=== PATIENT | male | born 1960 | race Caucasian/White ===

== ENCOUNTER 2017-01-31 03:06 | Inpatient (IN) | payer OTHER, SELFPAY ==
[2017-01-31] MEDS ORDERED: Piperacillin/Tazobactam 3.375 GM in Sodium Chloride 0.9% 100 ML IVPB SCH (03:45)
[2017-01-31] MEDS ORDERED: Acetaminophen 500 MG TAB ONE (03:51)
[2017-01-31] MEDS ORDERED: Ketorolac Tromethamine 30 MG/ML VIAL ONE ×2 (03:51→09:06)
[2017-01-31 04:09] LABS: #Eosinphils 0.1 thou/uL (0.0-0.7); #Lymphocytes 0.5 thou/uL (1.20-3.40); #Monocytes 0.9 thou/uL (0.11-0.59); #Neutrophils 7.5 thou/uL (1.40-6.50); %Basophils 0.3 % (0.0-1.0); %Eosinophils 1.1 % (0.0-10.0); %Lymphocytes 5.9 % (21.0-51.0); %Monocytes 9.8 % (0.0-10.0); Hematocrit 42.5 % (42.0-52.0); Red Blood Cell (RBC) Count 4.75 mill/uL (4.70-6.10); White Blood Cell (WBC) Count 9.1 thou/uL (4.8-10.8)
[2017-01-31 04:21] LABS: Lactic Acid - Sepsis 1.2 mmol/L (0.5-2.2)
[2017-01-31 04:25] LABS: ALT (SGPT) 54 U/L (8-55); AST (SGOT) 68 U/L (5-34); Alkaline Phosphatase 129 U/L (40-150); Anion Gap 12 mmol/L (10-20); BUN (Urea Nitrogen) 12 mg/dL (8.4-25.7); Bilirubin, Total 1.7 mg/dL (0.2-1.2); CK (CPK) 138 U/L (30-200); Calc. Creatinine Clearance 0 mL/min (70-130); Calcium 8.9 mg/dL (7.8-10.44); Carbon Dioxide 23 mmol/L (22-29); Chloride 103 mmol/L (98-107); Estimated GFR-MDRD 90; Lipase 34 U/L (8-78); Protein, Total 8.4 g/dL (6.0-8.3)
[2017-01-31 04:29] LABS: Troponin I Less than 0.010 ng/mL (< 0.028)
[2017-01-31 05:31] LABS: Bilirubin Negative (Negative); Blood, Urine Negative (Negative); Glucose, Urine (Dipstick) Negative (Negative); Ketone, Urine Negative (Negative); Nitrite Negative (Negative); Protein, Urine (Dipstick) Negative (Neg-Trace)
--- NOTE | 2017-01-31 07:46 | RAD ---
RIGHT ANKLE 3 VIEWS: Date: 01/31/17 HISTORY: 56-year-old male with fever. FINDINGS: Very severe deformity of the distal tibia, fibula, and ankle mortise with some longstanding chronic d estructive changes of the tibiotalar joint. There is some fusion of the distal tibiofibular joint. Th ere is some soft tissue fullness both medially, laterally, and anteriorly. No evidence for acute frac ture. IMPRESSION: Very severe destructive arthropathy changes involving the tibiotalar joint with fusion of the distal tibiofibular joint. No acute fracture or dislocation. Findings are certainly consistent with that of extensive old trauma and/or old prior surgery. Given history of fever, the possibility of chronic sep tic arthritis and even osteomyelitis cannot be excluded from this plain film. If that is a clinical c oncern, follow-up MRI study might be of benefit. POS: SCOUT
[2017-01-31] MEDS ORDERED: HYDROcodone/Acetaminophen 5/325 mg Tablet PO PRN (10:20)
[2017-01-31] MEDS ORDERED: Ondansetron ODT 4 MG TAB PO PRN (10:20)
[2017-01-31] MEDS ORDERED: Acetaminophen 325 MG TAB PO PRN (10:20)
[2017-01-31] MEDS: Sodium Chloride 0.9% 1,000 ML IV SCH ×2 (12:45→21:14)
[2017-01-31 12:55] VITALS: BMI 35.5
[2017-01-31] MEDS: Cefepime 2 GM, Syringe 2.5 ML in Sterile Water 10 ML SLOW IVP SCH ×2 (13:55→23:32)
[2017-01-31] MEDS: Vancomycin HCl 1.25 GM, Admixture Fee 1 EACH in Sodium Chloride 0.9% 250 ML 250 ML IVPB SCH (15:34)
[2017-01-31] MEDS: HYDROcodone/Acetaminophen 10/325 mg Tablet PO PRN (17:22)
[2017-01-31] MEDS ORDERED: Cefepime 2 GM in Sodium Chloride 0.9% 100 ML IVPB SCH (21:00)
[2017-01-31] MEDS ORDERED: FLU VACC QS2017-18 36 mo. & older 0.5 ML SYRINGE IM ONE (21:00)
[2017-01-31] MEDS: Famotidine 20 MG TAB PO SCH (21:14)
[2017-02-01] MEDS: Vancomycin HCl 1.25 GM, Admixture Fee 1 EACH in Sodium Chloride 0.9% 250 ML 250 ML IVPB SCH ×2 (04:09→15:33)
[2017-02-01] MEDS: HYDROcodone/Acetaminophen 10/325 mg Tablet PO PRN ×3 (04:14→14:10)
[2017-02-01 06:16] LABS: Anion Gap 8 mmol/L (10-20); BUN (Urea Nitrogen) 15 mg/dL (8.4-25.7); Calc. Creatinine Clearance 164 mL/min (70-130); Calcium 8.1 mg/dL (7.8-10.44); Carbon Dioxide 21 mmol/L (22-29); Chloride 109 mmol/L (98-107); Estimated GFR-MDRD Greater than 90
[2017-02-01] MEDS: Sodium Chloride 0.9% 1,000 ML IV SCH ×2 (08:30→15:34)
[2017-02-01] MEDS ORDERED: Enoxaparin Sodium 40 MG/0.4 ML SYRINGE SC SCH (09:00)
[2017-02-01 09:15] LABS: Hematocrit 39.4 % (42.0-52.0); Mean Platelet Volume 10.7 fL (7.4-10.4); Neutrophil 56 % (42-75); Reactive Lymphocytes 1 % (0-10); Red Blood Cell (RBC) Count 4.29 mill/uL (4.70-6.10); White Blood Cell (WBC) Count 3.7 thou/uL (4.8-10.8)
[2017-02-01] MEDS: Famotidine 20 MG TAB PO SCH ×2 (09:24→20:07)
[2017-02-01] MEDS: Cefepime 2 GM, Syringe 2.5 ML in Sterile Water 10 ML SLOW IVP SCH ×2 (10:44→23:13)
--- NOTE | 2017-02-01 15:29 | PDOC.PN ---
- Subjective Encounter Start Date: 02/01/17 Encounter Start Time: 10:20 Pt seen and exmained. socially patient is in [facility], was going to go to [facility] but still has a hearing here, so will remain here in [facility] until march. Discussed probably chronic osteo, poor blood flow, MRI scheduled for later Discussed options: 1. emt intermediate IV, lifelong po oral abx. or 2. BKA, surgical cure, eventual LE prosthesis, or 3. something else that wont work emt intermediate. Pt willing to consider BKA. ppending MRI results - Objective Resuscitation Status: Resuscitation Status FULL:Full Resuscitation MAR Reviewed: Yes Vital Signs & Weight: Vital Signs (12 hours) Temp Pulse Resp BP Pulse Ox 02/01/17 11:22 97.4 F L 67 20 172/99 H 97 02/01/17 11:00 150/84 H 02/01/17 08:00 97.8 F 65 18 162/103 H 99 02/01/17 05:47 97.8 F 64 16 113/69 98 Weight Admit Weight 247 lb 8 oz Weight 247 lb 8 oz I&O: 01/31/17 02/01/17 02/02/17 06:59 06:59 06:59 Intake Total 1200 Output Total 400 Balance -400 1200 Result Diagrams: 02/01/17 04:44 02/01/17 04:44 Radiology Reviewed by me: Yes EKG Reviewed by me: Yes Phys Exam - Physical Examination Constitutional: NAD HEENT: PERRLA, moist MMs, sclera anicteric, oral pharynx no lesions Neck: no nodes, no JVD, supple, full ROM Respiratory: no wheezing, no rales, no rhonchi, clear to auscultation bilateral Cardiovascular: RRR, no significant murmur, no rub Gastrointestinal: soft, non-tender, no distention, positive bowel sounds Musculoskeletal: pulses present, edema present R foot wounds clean, seen with wound care edema and redness about the same. no balottable fluid Neurological: non-focal, normal sensation, moves all 4 limbs Lymphatic: no nodes Psychiatric: normal affect, A&O x 3 Skin: no rash, normal turgor, cap refill <2 seconds Dx/Plan (1) Chronic osteomyelitis involving right ankle and foot Code(s): M86.671 - OTHER CHRONIC OSTEOMYELITIS, RIGHT ANKLE AND FOOT Status: Chronic Comment: MRI with chronic osteo, ankle destruction, no fluid. Dr guadarrama willing to do BKA. Will make pt NPO if agreeable in case Dr Guadarramahas the opportnity tomorrow (2) HTN (hypertension) Code(s): I10 - ESSENTIAL (PRIMARY) HYPERTENSION Status: Chronic Qualifiers: Hypertension type: essential hypertension Qualified Code(s): I10 - Essential (primary) hypertension (3) GERD (gastroesophageal reflux disease) Code(s): K21.9 - GASTRO-ESOPHAGEAL REFLUX DISEASE WITHOUT ESOPHAGITIS Status: Chronic Qualifiers: Esophagitis presence: without esophagitis Qualified Code(s): K21.9 - Gastro -esophageal reflux disease without esophagitis (4) Atherosclerotic PVD with ulceration Code(s): I70.209 - UNSP ATHSCL [place] ARTERIES OF EXTREMITIES, UNSP EXTREMITY; L98.499 - NON-PRESSURE CHRONIC ULCER OF SKIN OF SITES W UNSP SEVERITY Status: Chronic Qualifiers: Peripheral atherosclerosis location: lower extremity Lower extremity ulceration location: ankle Laterality: right (5) Nonhealing surgical wound Code(s): T81.89XA - OTH COMPLICATIONS OF PROCEDURES, NEC, INIT Status: Acute Qualifiers: Encounter type: subsequent encounter Qualified Code(s): T81.89XD - Other complications of procedures, not elsewhere classified, subsequent encounter - Plan cont current plan of care, continue antibiotics, dialysis social worker * .
--- NOTE | 2017-02-01 16:39 | MRI ---
RIGHT ANKLE MRI WITH AND WITHOUT IV CONTRAST 02/01/17 HISTORY: 56-year-old male with right lower extremity cellulitis with ankle swelling and pain with some diffuse subcutaneous fat stranding and swelling of the lower leg, ankle and foot. There is some focal areas of skin and subcutaneous loss and irregularity including one over the mid Achilles tendon as well as one over the medial malleolus. There is very marked and heterogeneous thickening of the Achilles tend on throughout its entirety measuring up to approximately 1.9 cm in AP dimension consistent with very severe tendinopathy and may additionally represent residual from prior Achilles tendon injury but no evidence of a full thickness acute tendon tear. Very severe arthrosis changes are noted involving the tibiotalar joint as well as bony fusion changes of the distal tibiofibular joint with marked resulta nt deformity of the distal tibia, distal fibula, and talus. There are arthrosis changes of the subtal ar joints as well as the midfoot tarsal joints. The visualized flexor, extensor, and peroneus tendons appear intact. Ankle collateral ligaments are poorly defined bilaterally. No evidence of abnormal m arrow signal to suggest acute osteomyelitis. There is some heterogeneous muscle volume loss involving the lower leg musculature, particularly the flexor hallucis myotendinous region, the proximal flexor hallucis tendon extends posteriorly and appears to be adherent to the anterior aspect of the markedl y thickened abnormal Achilles tendon probably related to scar tissue. There appears to have been at l east one vertically oriented internal fixation probable screws stabilizing the talus and calcaneus re gion through the posterior subtalar joint which apparently has been removed suggesting some type of f usion. No evidence for drainable abscess. IMPRESSION: No evidence of osteomyelitis or drainable abscess. Very markedly abnormal Achilles tendon consistent with severe tendinopathy and probable chronic partial thickness tearing. Severe arthrosis and deformi ty of the distal tibiofibular joint, tibiotalar joint, and fibulotalar joints which appear to be gonzález te with no evidence to suggest acute septic arthritis. Very poorly defined collateral ligament comple xes. The flexor hallucis tendon appears to be scarred to the Achilles tendon with some muscle volume loss of the distal flexor hallucis muscle. Diffuse subcutaneous swelling and edema. POS: SCOUT
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
[2017-02-02] MEDS: HYDROcodone/Acetaminophen 10/325 mg Tablet PO PRN ×3 (01:48→20:36)
[2017-02-02] MEDS: Sodium Chloride 0.9% 1,000 ML IV SCH ×3 (01:48→20:37)
[2017-02-02] MEDS: Vancomycin HCl 1.25 GM, Admixture Fee 1 EACH in Sodium Chloride 0.9% 250 ML 250 ML IVPB SCH ×2 (05:13→16:45)
[2017-02-02 06:01] LABS: Anion Gap 7 mmol/L (10-20); BUN (Urea Nitrogen) 11 mg/dL (8.4-25.7); Calc. Creatinine Clearance 168 mL/min (70-130); Calcium 8.1 mg/dL (7.8-10.44); Carbon Dioxide 24 mmol/L (22-29); Chloride 107 mmol/L (98-107); Estimated GFR-MDRD Greater than 90; Magnesium 1.6 mg/dL (1.6-2.6)
[2017-02-02 06:06] LABS: Band 1 % (5-11); Mean Platelet Volume 9.8 fL (7.4-10.4); Neutrophil 59 % (42-75); Reactive Lymphocytes 1 % (0-10); Red Blood Cell (RBC) Count 4.18 mill/uL (4.70-6.10); White Blood Cell (WBC) Count 3.3 thou/uL (4.8-10.8)
[2017-02-02 09:27] LABS: Prothrombin Time 14.9 SEC (12.0-14.7)
[2017-02-02] MEDS: Famotidine 20 MG TAB PO SCH ×2 (11:33→20:36)
[2017-02-02] MEDS: Cefepime 2 GM, Syringe 2.5 ML in Sterile Water 10 ML SLOW IVP SCH ×2 (12:37→23:22)
[2017-02-02] MEDS ORDERED: Midazolam HCl 2 mg/2 ml Vial ONE ×2 (14:48→17:15)
[2017-02-02] MEDS ORDERED: Fentanyl 100 MCG/2 ML VIAL ONE ×3 (14:48→16:38)
[2017-02-02] MEDS ORDERED: Ropivacaine 0.5% HCl/PF (150 MG/30 ML VIAL) ONE (14:48)
[2017-02-02] MEDS ORDERED: Ropivacaine 0.2% HCl/PF 20 ML ONE (14:49)
[2017-02-02 15:28] LABS: Vancomycin, Trough 12.7 ug/mL
[2017-02-02] MEDS ORDERED: Ropivacaine HCl/PF 250 ML in Premix Bag 1 BAG NERVE BLCK SCH ×2 (15:33→15:45)
[2017-02-02] MEDS ORDERED: Zolpidem Tartrate 5 MG TAB PO PRN (15:33)
[2017-02-02] MEDS ORDERED: Ondansetron HCl/PF 4 MG/2 ML Vial IVP PRN (15:33)
[2017-02-02] MEDS ORDERED: Promethazine HCl 25 MG/ML VIAL IM PRN (15:33)
[2017-02-02] MEDS ORDERED: traMADol HCl 50 MG TAB PO PRN ×2 (15:33)
--- NOTE | 2017-02-02 15:49 | EKG ---
Test Reason : STAT Blood Pressure : / mmHG Vent. Rate : 076 BPM Atrial Rate : 076 BPM P-R Int : 210 ms QRS Dur : 078 ms QT Int : 384 ms P-R-T Axes : 050 053 052 degrees QTc Int : 432 ms Sinus rhythm with 1st degree A-V block Otherwise normal ECG When compared with ECG of 15-DEC-2013 02:02, RI interval has increased Criteria for Septal infarct are no longer Present Confirmed by LUZ OLVERA ([id number]) on 02/02/2017 3:49:07 PM Referred By: JANNY Confirmed By:LUZ OLVERA
[2017-02-02] MEDS ORDERED: Ondansetron HCl/PF 4 MG/2 ML Vial ONE (17:28)
[2017-02-02] MEDS ORDERED: PHENYLEPHRINE-NS 100 MCG/ML 10 ML SYRINGE ONE (17:28)
[2017-02-02] MEDS ORDERED: Lidocaine 1% PF 5 ML VIAL ONE (17:28)
[2017-02-02] MEDS ORDERED: Propofol 200 MG/20 ML VIAL ONE (17:28)
--- NOTE | 2017-02-02 18:08 | PDOC.PN ---
- Subjective Encounter Start Date: 02/02/17 Encounter Start Time: 10:20 Pt seen for followup re: osteomyelitis. Denies chest pain, shortness of breath , fevers. - Objective Resuscitation Status: Resuscitation Status FULL:Full Resuscitation MAR Reviewed: Yes Vital Signs & Weight: Vital Signs (12 hours) Temp Pulse Resp BP Pulse Ox 02/02/17 08:00 97.7 F 65 18 159/89 H 98 Weight Admit Weight 247 lb 8 oz Weight 247 lb 8 oz I&O: 02/01/17 02/02/17 02/03/17 06:59 06:59 06:59 Intake Total 1200 400 Output Total 400 1100 Balance -400 1200 -700 Result Diagrams: 02/02/17 04:51 02/02/17 04:51 Phys Exam - Physical Examination Constitutional: NAD HEENT: moist MMs Neck: supple Respiratory: clear to auscultation bilateral Cardiovascular: RRR Gastrointestinal: soft Musculoskeletal: pulses present Neurological: moves all 4 limbs Psychiatric: normal affect Deviation from normal: RLE cellulitis Dx/Plan (1) Chronic osteomyelitis involving right ankle and foot Code(s): M86.671 - OTHER CHRONIC OSTEOMYELITIS, RIGHT ANKLE AND FOOT Status: Chronic (2) GERD (gastroesophageal reflux disease) Code(s): K21.9 - GASTRO-ESOPHAGEAL REFLUX DISEASE WITHOUT ESOPHAGITIS Status: Chronic Qualifiers: Esophagitis presence: without esophagitis Qualified Code(s): K21.9 - Gastro -esophageal reflux disease without esophagitis (3) HTN (hypertension) Code(s): I10 - ESSENTIAL (PRIMARY) HYPERTENSION Status: Chronic Qualifiers: Hypertension type: essential hypertension Qualified Code(s): I10 - Essential (primary) hypertension - Plan continue antibiotics, PT/OT * . Continue antibiotics. Plan for BKA (R) later today. Monitor vital signs, titrate antihypertensives as needed. Review of Systems - Review of Systems Respiratory: negative: Cough, Dry, Shortness of Breath, Hemoptysis, SOB with Excertion, Pleuritic Pain, Sputum, Wheezing Cardiovascular: negative: Chest Pain, Palpitations, Orthopnea, Paroxysmal Noc. Dyspnea, Edema, Light Headedness - Medications/Allergies Allergies/Adverse Reactions: Allergies Allergy/AdvReac Type Severity Reaction Status Date / Time Sulfa (Sulfonamide Allergy Verified 12/15/13 05:00 Antibiotics) sulfamethoxazole Allergy Verified 12/15/13 04:35 [From Bactrim] trimethoprim [From Bactrim] Allergy Verified 12/15/13 04:35 Medications: Current Medications Acetaminophen (Tylenol) 650 mg PO Q4H PRN PRN Reason: Headache/Fever or Pain Hydrocodone Bitart/Acetaminophen ([place] 10/325) 1 tab PO Q4H PRN PRN Reason: Moderate Pain (4-6) Last Admin: 02/02/17 10:54 Dose: 1 tab Hydrocodone Bitart/Acetaminophen ([place] 5/325) 1 tab PO Q4H PRN PRN Reason: Mild Pain (1-3) Hydrocodone Bitart/Acetaminophen ([place] 10/325) 1 tab PO Q4H PRN PRN Reason: Pain (1-3) Hydrocodone Bitart/Acetaminophen ([place] 10/325) 2 tab PO Q4H PRN PRN Reason: PAIN (4-6) Famotidine (Pepcid) 20 mg PO BID COUNT INCLUDES THE [facility] Last Admin: 02/02/17 11:33 Dose: Not Given Fentanyl (Sublimaze) 50 mcg IV Q1H PRN PRN Reason: BREAKTHRU PAIN Gabapentin (Neurontin) 300 mg PO BID COUNT INCLUDES THE [facility] Sodium Chloride (Normal Saline 0.9%) 1,000 mls @ 100 mls/hr IV .Q10H COUNT INCLUDES THE [facility] Last Admin: 02/02/17 12:40 Dose: Not Given Vancomycin HCl 1.25 gm/Miscellaneous Medication 1 each/ Sodium Chloride 250 mls @ 166.67 mls/hr IVPB 0400,1600 COUNT INCLUDES THE [facility] Last Admin: 02/02/17 16:45 Dose: 250 mls Cefepime HCl 2 gm/ Syringe 2.5 (ml/ Sterile Water) 12.5 mls @ 150 mls/hr SLOW IVP 1100,2300 COUNT INCLUDES THE [facility] Last Admin: 02/02/17 12:37 Dose: 12.5 mls Ropivacaine 250 ml/ Device 250 mls @ 6 mls/hr NERVE BLCK INF COUNT INCLUDES THE [facility] Ropivacaine 250 ml/ Device 250 mls @ 6 mls/hr NERVE BLCK INF COUNT INCLUDES THE [facility] Ondansetron HCl (Zofran Odt) 4 mg PO Q6H PRN PRN Reason: Nausea/Vomiting Ondansetron HCl (Zofran) 4 mg IVP Q6H PRN PRN Reason: Nausea/Vomiting Promethazine HCl (Phenergan) 12.5 mg IM Q4H PRN PRN Reason: Nausea Sodium Chloride (Flush - Normal Saline) 10 ml IVF Q12HR ALESSANDRO Last Admin: 02/02/17 09:00 Dose: Not Given Sodium Chloride (Flush - Normal Saline) 10 ml IVF PRN PRN PRN Reason: Saline Flush Tramadol HCl (Ultram) 50 mg PO Q6H PRN PRN Reason: Mild Pain (1-3) Tramadol HCl (Ultram) 100 mg PO Q6H PRN PRN Reason: Moderate Pain 4-6 Zolpidem Tartrate (Ambien) 5 mg PO HSPRN PRN PRN Reason: Insomnia
[2017-02-02] MEDS ORDERED: Ketorolac Tromethamine 30 MG/ML VIAL IVP PRN (19:14)
[2017-02-02] MEDS: Gabapentin 300 MG CAP PO SCH (20:35)
[2017-02-03] MEDS: Vancomycin HCl 1.25 GM, Admixture Fee 1 EACH in Sodium Chloride 0.9% 250 ML 250 ML IVPB SCH (03:28)
[2017-02-03] MEDS: Sodium Chloride 0.9% 1,000 ML IV SCH (03:30)
[2017-02-03] MEDS: HYDROcodone/Acetaminophen 10/325 mg Tablet PO PRN ×4 (04:39→21:24)
[2017-02-03 06:02] LABS: Anion Gap 4 mmol/L (10-20); BUN (Urea Nitrogen) 12 mg/dL (8.4-25.7); Calc. Creatinine Clearance 170 mL/min (70-130); Calcium 8.2 mg/dL (7.8-10.44); Carbon Dioxide 28 mmol/L (22-29); Chloride 104 mmol/L (98-107); Estimated GFR-MDRD Greater than 90
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
--- NOTE | 2017-02-03 06:23 | OP ---
DATE OF PROCEDURE: 02/02/2017 PREOPERATIVE DIAGNOSES: Chronic osteomyelitis right ankle with chronic draining wound for years, inf usion, pain, intractable. POSTOPERATIVE DIAGNOSES: Chronic osteomyelitis right ankle with chronic draining wound for years, in fusion, pain, intractable. PROCEDURE: Right [id number] amputation. SURGEON: Nasim Guadarrama M.D. ANESTHESIA: General, regional, infusional. ESTIMATED BLOOD LOSS: 300 mL. BLOOD TRANSFUSED: One platelet pack transfused (thrombocytopenia secondary to cirrhosis, hepatitis C , splenomegaly). PROCEDURE IN DETAIL: The patient taken to the operating room where, under geneal regional anesthesia infusional, sciatic and femoral block. The right lower extremity was prepared with ChloraPrep, drap ed in routine fashion. Incision made for a long posterior flap [id number] amputation via skin an d subcutaneous tissue, fascia. Muscle areas were transected with the cautery. Vascular bundles were divided between clamps and ligated with 2-0 silk ties. Tibia cleared of periosteum proximally, macias sected with Gigli saw, beveling the anterior edge cephalad, smoothing it with a rasp. I configured a cut above the cut edge of the tibia two inches with a bone cutter. Hemostasis gained with 2-0 Vicry l and ties and cautery. Fascia approximated with [id number] sutures of 2-0 Vicryl, skin with st aples, and at one area where there was interrupted vertical mattress sutures of 2-0 Prolene applied, Xeroform sterile dressing applied. The patient tolerated the procedure well.
[2017-02-03 06:49] LABS: #Eosinphils 0.1 thou/uL (0.0-0.7); #Lymphocytes 0.6 thou/uL (1.20-3.40); #Monocytes 0.4 thou/uL (0.11-0.59); #Neutrophils 2.4 thou/uL (1.40-6.50); %Basophils 0.2 % (0.0-1.0); %Eosinophils 4.1 % (0.0-10.0); %Lymphocytes 16.9 % (21.0-51.0); %Monocytes 11.1 % (0.0-10.0); Hematocrit 35.4 % (42.0-52.0); Mean Platelet Volume 9.6 fL (7.4-10.4); Red Blood Cell (RBC) Count 3.88 mill/uL (4.70-6.10); White Blood Cell (WBC) Count 3.5 thou/uL (4.8-10.8)
[2017-02-03] MEDS: Famotidine 20 MG TAB PO SCH ×2 (09:06→21:24)
[2017-02-03] MEDS: Gabapentin 300 MG CAP PO SCH ×2 (09:06→21:24)
--- NOTE | 2017-02-03 09:46 | PRG ---
DATE OF SERVICE: 02/03/2017 Willem Vega is doing well status post right ayutk-[id number]-uaig amputation. He has infusion catheter s managed by Anesthesia, his pain control is not adequate and his nurse will call Anesthesia. The eric morton is doing as instructed with his right BKA stump resting on pillows or blankets placed below the knee to enable extension of the right knee and to prevent a contracture. He is tolerating his diet. He had breakfast in bed this morning. I have told him he needs to be out of bed into a chair for a ll meals and he states he will do that. He has saline fluid running and I have discontinued He has intravenous antibiotics that we will discontinue today. His white count is 3 this morning, hemoglobin 11.9, platelet count 61,000 after a platelet pack infus ed yesterday. Basic metabolic profile is essentially unremarkable. ASSESSMENT AND PLAN: 1. Status post right [id number]-ost-yxgu amputation. Plan would be to continue hospitalization with phys ical therapy to enable safe transfers and ambulation with a walker. He will need discharge supplies with a walker and wheelchair. I understand he will be transferred to [facility] for his convalescence. I will see him in the office in 2-3 weeks to take out his esteban or this can be done in [place] more likely there. The plan this weekend would be to remove his right BKA dressing Monday, begin was jorge luis the wound with soap and water in a shower chair and then cleansed with Hibiclens, rinse with genesis ine and place antibiotic ointment, Telfa and Rubén wraps Monday. Monday, [facility] will be consulted and a stump hardboard grinder applied. From surgical standpoint, the patient could be transferre d to the [facility] Monday or Monday. I would like to have a stump hardboard grinder available to him on transfer. We will leave his transfer to the Medical Service. Dr. Jo, my associate, is covering over the [facility]. Please call if needed. Otherwise, I will see him Monday if he is still here. 2. Patient has chronic thrombocytopenia due to hepatitis C and cirrhosis. He has previously documen ian radiological CAT scan splenomegaly. I suspect he has early cirrhosis. He had seen Gastroenterol tiffanie prior to incarceration 7 months ago and discussed treatment for his hepatitis C, but he was not a ble to follow up with that due to his incarceration. I think the patient can safely continue Lovenox despite his thrombocytopenia as his thrombocytopenia is related to his liver disease and not related to anticoagulation.
--- NOTE | 2017-02-03 12:42 | PDOC.PN ---
- Subjective Encounter Start Date: 02/03/17 Encounter Start Time: 09:00 Pt seen for followup re: R foot. Had BKA yesterday, reports on and off pain. - Objective Resuscitation Status: Resuscitation Status FULL:Full Resuscitation MAR Reviewed: Yes Vital Signs & Weight: Vital Signs (12 hours) Temp Pulse Resp BP BP Pulse Ox 02/03/17 11:44 98.2 F 99 20 152/84 H 95 02/03/17 07:52 98.3 F 74 16 117/79 97 02/03/17 05:37 97.7 F 74 20 124/80 97 02/03/17 02:15 97.3 F L 87 20 107/72 94 L Weight Admit Weight 247 lb 8 oz Weight 247 lb 8 oz I&O: 02/02/17 02/03/17 02/04/17 06:59 06:59 06:59 Intake Total 1200 1350 Output Total 1100 Balance 1200 250 Result Diagrams: 02/03/17 04:21 02/03/17 04:21 Phys Exam - Physical Examination Obese HEENT: moist MMs Neck: supple Respiratory: clear to auscultation bilateral Cardiovascular: RRR Gastrointestinal: soft s/p R BKA Neurological: moves all 4 limbs Psychiatric: normal affect Skin: no rash Dx/Plan (1) Chronic osteomyelitis involving right ankle and foot Code(s): M86.671 - OTHER CHRONIC OSTEOMYELITIS, RIGHT ANKLE AND FOOT Status: Chronic (2) GERD (gastroesophageal reflux disease) Code(s): K21.9 - GASTRO-ESOPHAGEAL REFLUX DISEASE WITHOUT ESOPHAGITIS Status: Chronic Qualifiers: Esophagitis presence: without esophagitis Qualified Code(s): K21.9 - Gastro -esophageal reflux disease without esophagitis (3) HTN (hypertension) Code(s): I10 - ESSENTIAL (PRIMARY) HYPERTENSION Status: Chronic Qualifiers: Hypertension type: essential hypertension Qualified Code(s): I10 - Essential (primary) hypertension - Plan PT/OT, out of bed/ambulate, DVT proph w/lovenox * . s/p R BKA. Therapy services following. Appreciate surgical input. Monitor vital signs, titrate antihypertensives as needed. Pt is off of antibiotics. Review of Systems - Review of Systems Respiratory: negative: Cough, Dry, Shortness of Breath, Hemoptysis, SOB with Excertion, Pleuritic Pain, Sputum, Wheezing Cardiovascular: negative: Chest Pain, Palpitations, Orthopnea, Paroxysmal Noc. Dyspnea, Edema, Light Headedness Musculoskeletal: Leg Pain. negative: Neck Pain, Shoulder Pain, Arm Pain, Back Pain, Hand Pain, Foot Pain - Medications/Allergies Allergies/Adverse Reactions: Allergies Allergy/AdvReac Type Severity Reaction Status Date / Time Sulfa (Sulfonamide Allergy Verified 12/15/13 05:00 Antibiotics) sulfamethoxazole Allergy Verified 12/15/13 04:35 [From Bactrim] trimethoprim [From Bactrim] Allergy Verified 12/15/13 04:35 Medications: Current Medications Acetaminophen (Tylenol) 650 mg PO Q4H PRN PRN Reason: Headache/Fever or Pain Hydrocodone Bitart/Acetaminophen ([place] 10/325) 1 tab PO Q4H PRN PRN Reason: Pain (1-3) Last Admin: 02/03/17 04:39 Dose: 1 tab Hydrocodone Bitart/Acetaminophen ([place] 10/325) 2 tab PO Q4H PRN PRN Reason: PAIN (4-6) Last Admin: 02/03/17 11:26 Dose: 2 tab Enoxaparin Sodium (Lovenox) 40 mg SC 0900 [facility] Famotidine (Pepcid) 20 mg PO BID [facility] Last Admin: 02/03/17 09:06 Dose: 20 mg Fentanyl (Sublimaze) 50 mcg IV Q1H PRN PRN Reason: BREAKTHRU PAIN Gabapentin (Neurontin) 300 mg PO BID [facility] Last Admin: 02/03/17 09:06 Dose: 300 mg Ropivacaine 250 ml/ Device 250 mls @ 6 mls/hr NERVE BLCK INF [facility] Ropivacaine 250 ml/ Device 250 mls @ 6 mls/hr NERVE BLCK INF [facility] Ketorolac Tromethamine (Toradol) 30 mg IVP Q6H PRN PRN Reason: Pain Stop: 02/07/17 19:15 Ondansetron HCl (Zofran Odt) 4 mg PO Q6H PRN PRN Reason: Nausea/Vomiting Ondansetron HCl (Zofran) 4 mg IVP Q6H PRN PRN Reason: Nausea/Vomiting Promethazine HCl (Phenergan) 12.5 mg IM Q4H PRN PRN Reason: Nausea Sodium Chloride (Flush - Normal Saline) 10 ml IVF Q12HR [facility] Last Admin: 02/03/17 09:07 Dose: Not Given Sodium Chloride (Flush - Normal Saline) 10 ml IVF PRN PRN PRN Reason: Saline Flush Tramadol HCl (Ultram) 50 mg PO Q6H PRN PRN Reason: Mild Pain (1-3) Tramadol HCl (Ultram) 100 mg PO Q6H PRN PRN Reason: Moderate Pain 4-6 Zolpidem Tartrate (Ambien) 5 mg PO HSPRN PRN PRN Reason: Insomnia
[2017-02-03] MEDS ORDERED: diphenhydrAMINE 25 MG CAP PO PRN (21:53)
[2017-02-04] MEDS: HYDROcodone/Acetaminophen 10/325 mg Tablet PO PRN ×4 (02:22→21:57)
[2017-02-04] MEDS: Famotidine 20 MG TAB PO SCH ×2 (07:44→21:58)
[2017-02-04] MEDS: Gabapentin 300 MG CAP PO SCH ×2 (07:44→21:58)
--- NOTE | 2017-02-04 11:43 | PDOC.PN ---
- Subjective Encounter Start Date: 02/04/17 Encounter Start Time: 09:00 Pt seen for followup re: chronic osteomyelitis. Reports on and off pain at surgical site, no other complaints. - Objective Resuscitation Status: Resuscitation Status FULL:Full Resuscitation MAR Reviewed: Yes Vital Signs & Weight: Vital Signs (12 hours) Temp Pulse Resp BP Pulse Ox 02/04/17 07:55 98 F 86 16 02/04/17 07:44 98 F 86 16 154/80 H 95 Weight Admit Weight 247 lb 8 oz Weight 247 lb 8 oz I&O: 02/03/17 02/04/17 02/05/17 06:59 06:59 06:59 Intake Total 1350 400 Output Total 1100 4000 Balance 250 -3600 Result Diagrams: 02/03/17 04:21 02/03/17 04:21 Phys Exam - Physical Examination Constitutional: NAD HEENT: moist MMs Neck: supple Respiratory: clear to auscultation bilateral Cardiovascular: RRR s/p R BKA Neurological: moves all 4 limbs Psychiatric: normal affect Dx/Plan (1) Chronic osteomyelitis involving right ankle and foot Code(s): M86.671 - OTHER CHRONIC OSTEOMYELITIS, RIGHT ANKLE AND FOOT Status: Chronic (2) GERD (gastroesophageal reflux disease) Code(s): K21.9 - GASTRO-ESOPHAGEAL REFLUX DISEASE WITHOUT ESOPHAGITIS Status: Chronic Qualifiers: Esophagitis presence: without esophagitis Qualified Code(s): K21.9 - Gastro -esophageal reflux disease without esophagitis (3) HTN (hypertension) Code(s): I10 - ESSENTIAL (PRIMARY) HYPERTENSION Status: Chronic Qualifiers: Hypertension type: essential hypertension Qualified Code(s): I10 - Essential (primary) hypertension - Plan DVT proph w/lovenox * . Monitor vital signs and titrate antihypertensives as needed. Pain management per anesthesiology service. Review of Systems - Review of Systems Respiratory: negative: Cough, Dry, Shortness of Breath, Hemoptysis, SOB with Excertion, Pleuritic Pain, Sputum, Wheezing Cardiovascular: negative: Chest Pain, Palpitations, Orthopnea, Paroxysmal Noc. Dyspnea, Edema, Light Headedness Musculoskeletal: Leg Pain - Medications/Allergies Allergies/Adverse Reactions: Allergies Allergy/AdvReac Type Severity Reaction Status Date / Time Sulfa (Sulfonamide Allergy Verified 12/15/13 05:00 Antibiotics) sulfamethoxazole Allergy Verified 12/15/13 04:35 [From Bactrim] trimethoprim [From Bactrim] Allergy Verified 12/15/13 04:35 Medications: Current Medications Acetaminophen (Tylenol) 650 mg PO Q4H PRN PRN Reason: Headache/Fever or Pain Hydrocodone Bitart/Acetaminophen ([place] 10/325) 1 tab PO Q4H PRN PRN Reason: Pain (1-3) Last Admin: 02/03/17 04:39 Dose: 1 tab Hydrocodone Bitart/Acetaminophen ([place] 10/325) 2 tab PO Q4H PRN PRN Reason: PAIN (4-6) Last Admin: 02/04/17 07:44 Dose: 2 tab Diphenhydramine HCl (Benadryl) 25 mg PO Q6H PRN PRN Reason: Itching & Insomnia Enoxaparin Sodium (Lovenox) 40 mg SC 09 [facility] Famotidine (Pepcid) 20 mg PO BID [facility] Last Admin: 02/04/17 07:44 Dose: 20 mg Fentanyl (Sublimaze) 50 mcg IV Q1H PRN PRN Reason: BREAKTHRU PAIN Gabapentin (Neurontin) 300 mg PO BID [facility] Last Admin: 02/04/17 07:44 Dose: 300 mg Ropivacaine 250 ml/ Device 250 mls @ 6 mls/hr NERVE BLCK INF [facility] Ropivacaine 250 ml/ Device 250 mls @ 6 mls/hr NERVE BLCK INF [facility] Ketorolac Tromethamine (Toradol) 30 mg IVP Q6H [facility] Stop: 02/08/17 13:31 Ondansetron HCl (Zofran Odt) 4 mg PO Q6H PRN PRN Reason: Nausea/Vomiting Ondansetron HCl (Zofran) 4 mg IVP Q6H PRN PRN Reason: Nausea/Vomiting Promethazine HCl (Phenergan) 12.5 mg IM Q4H PRN PRN Reason: Nausea Sodium Chloride (Flush - Normal Saline) 10 ml IVF Q12HR [facility] Last Admin: 02/04/17 07:51 Dose: 10 ml Sodium Chloride (Flush - Normal Saline) 10 ml IVF PRN PRN PRN Reason: Saline Flush Tramadol HCl (Ultram) 50 mg PO Q6H PRN PRN Reason: Mild Pain (1-3) Tramadol HCl (Ultram) 100 mg PO Q6H PRN PRN Reason: Moderate Pain 4-6 Zolpidem Tartrate (Ambien) 5 mg PO HSPRN PRN PRN Reason: Insomnia
[2017-02-04] MEDS: diphenhydrAMINE 25 MG CAP PO PRN (14:23)
[2017-02-04] MEDS: Fentanyl 100 MCG/2 ML VIAL IV PRN ×2 (15:16→17:52)
[2017-02-05] MEDS: diphenhydrAMINE 25 MG CAP PO PRN (00:14)
[2017-02-05] MEDS: Fentanyl 100 MCG/2 ML VIAL IV PRN ×2 (00:34→16:06)
[2017-02-05] MEDS: HYDROcodone/Acetaminophen 10/325 mg Tablet PO PRN ×3 (03:44→13:13)
[2017-02-05 06:16] LABS: Anion Gap 9 mmol/L (10-20); BUN (Urea Nitrogen) 10 mg/dL (8.4-25.7); Calc. Creatinine Clearance 175 mL/min (70-130); Calcium 8.4 mg/dL (7.8-10.44); Carbon Dioxide 25 mmol/L (22-29); Chloride 101 mmol/L (98-107); Estimated GFR-MDRD Greater than 90
[2017-02-05 07:13] LABS: Band 1 % (5-11); Hematocrit 36.7 % (42.0-52.0); Mean Platelet Volume 9.5 fL (7.4-10.4); Neutrophil 75 % (42-75); Red Blood Cell (RBC) Count 4.03 mill/uL (4.70-6.10); White Blood Cell (WBC) Count 6.3 thou/uL (4.8-10.8)
[2017-02-05] MEDS: Famotidine 20 MG TAB PO SCH ×2 (08:51→19:47)
[2017-02-05] MEDS: Gabapentin 300 MG CAP PO SCH ×2 (08:51→19:47)
--- NOTE | 2017-02-05 11:41 | PDOC.PN ---
- Subjective Encounter Start Date: 02/05/17 Encounter Start Time: 09:20 Pt seen for followup re: chronic osteomyelitis. No new complaints. - Objective Resuscitation Status: Resuscitation Status FULL:Full Resuscitation MAR Reviewed: Yes Vital Signs & Weight: Vital Signs (12 hours) Temp Pulse Resp BP Pulse Ox 02/05/17 11:15 97.8 F 73 20 135/75 93 L 02/05/17 08:00 97.7 F 88 20 94 L 02/05/17 07:49 97.7 F 88 20 159/89 H 94 L Weight Admit Weight 247 lb 8 oz Weight 247 lb 8 oz I&O: 02/04/17 02/05/17 02/06/17 06:59 06:59 06:59 Intake Total 400 1720 240 Output Total 4000 2400 Balance -3600 -680 240 Result Diagrams: 02/05/17 04:25 02/05/17 04:25 Phys Exam - Physical Examination Constitutional: NAD HEENT: moist MMs Neck: supple Respiratory: clear to auscultation bilateral Cardiovascular: RRR Gastrointestinal: soft s/p R BKA Neurological: moves all 4 limbs Psychiatric: normal affect Skin: no rash Dx/Plan (1) Chronic osteomyelitis involving right ankle and foot Code(s): M86.671 - OTHER CHRONIC OSTEOMYELITIS, RIGHT ANKLE AND FOOT Status: Chronic (2) GERD (gastroesophageal reflux disease) Code(s): K21.9 - GASTRO-ESOPHAGEAL REFLUX DISEASE WITHOUT ESOPHAGITIS Status: Chronic Qualifiers: Esophagitis presence: without esophagitis Qualified Code(s): K21.9 - Gastro -esophageal reflux disease without esophagitis (3) HTN (hypertension) Code(s): I10 - ESSENTIAL (PRIMARY) HYPERTENSION Status: Chronic Qualifiers: Hypertension type: essential hypertension Qualified Code(s): I10 - Essential (primary) hypertension - Plan PT/OT, out of bed/ambulate, DVT proph w/lovenox s/p R BKA. Dressing changes per surgical service. Likely discharge tomorrow. * . Review of Systems - Review of Systems Respiratory: negative: Cough, Dry, Shortness of Breath, Hemoptysis, SOB with Excertion, Pleuritic Pain, Sputum, Wheezing Cardiovascular: negative: Chest Pain, Palpitations, Orthopnea, Paroxysmal Noc. Dyspnea, Edema, Light Headedness - Medications/Allergies Allergies/Adverse Reactions: Allergies Allergy/AdvReac Type Severity Reaction Status Date / Time Sulfa (Sulfonamide Allergy Verified 12/15/13 05:00 Antibiotics) sulfamethoxazole Allergy Verified 12/15/13 04:35 [From Bactrim] trimethoprim [From Bactrim] Allergy Verified 12/15/13 04:35 Medications: Current Medications Acetaminophen (Tylenol) 650 mg PO Q4H PRN PRN Reason: Headache/Fever or Pain Hydrocodone Bitart/Acetaminophen ([place] 10/325) 1 tab PO Q4H PRN PRN Reason: Pain (1-3) Last Admin: 02/03/17 04:39 Dose: 1 tab Hydrocodone Bitart/Acetaminophen ([place] 10/325) 2 tab PO Q4H PRN PRN Reason: PAIN (4-6) Last Admin: 02/05/17 08:56 Dose: 2 tab Diphenhydramine HCl (Benadryl) 25 mg PO Q6H PRN PRN Reason: Itching & Insomnia Last Admin: 02/05/17 00:14 Dose: 25 mg Enoxaparin Sodium (Lovenox) 40 mg SC 0900 [facility] Famotidine (Pepcid) 20 mg PO BID [facility] Last Admin: 02/05/17 08:51 Dose: 20 mg Fentanyl (Sublimaze) 50 mcg IV Q1H PRN PRN Reason: BREAKTHRU PAIN Last Admin: 02/05/17 00:34 Dose: 50 mcg Gabapentin (Neurontin) 300 mg PO BID [facility] Last Admin: 02/05/17 08:51 Dose: 300 mg Ropivacaine 250 ml/ Device 250 mls @ 6 mls/hr NERVE BLCK INF [facility] Ropivacaine 250 ml/ Device 250 mls @ 6 mls/hr NERVE BLCK INF [facility] Ketorolac Tromethamine (Toradol) 30 mg IVP Q6H [facility] Stop: 02/08/17 13:31 Ondansetron HCl (Zofran Odt) 4 mg PO Q6H PRN PRN Reason: Nausea/Vomiting Ondansetron HCl (Zofran) 4 mg IVP Q6H PRN PRN Reason: Nausea/Vomiting Promethazine HCl (Phenergan) 12.5 mg IM Q4H PRN PRN Reason: Nausea Sodium Chloride (Flush - Normal Saline) 10 ml IVF Q12HR [facility] Last Admin: 02/05/17 08:51 Dose: 10 ml Sodium Chloride (Flush - Normal Saline) 10 ml IVF PRN PRN PRN Reason: Saline Flush Tramadol HCl (Ultram) 50 mg PO Q6H PRN PRN Reason: Mild Pain (1-3) Tramadol HCl (Ultram) 100 mg PO Q6H PRN PRN Reason: Moderate Pain 4-6 Zolpidem Tartrate (Ambien) 5 mg PO HSPRN PRN PRN Reason: Insomnia
[2017-02-05] MEDS ORDERED: Triple Antibiotic Oint 1 GM Packet TOP SCH (14:00)
[2017-02-05] MEDS: Enoxaparin Sodium 40 MG/0.4 ML SYRINGE SC SCH ×2 (17:41→18:46)
[2017-02-05] MEDS: Ketorolac Tromethamine 30 MG/ML VIAL IVP SCH ×2 (18:45→23:37)
[2017-02-06] MEDS: HYDROcodone/Acetaminophen 10/325 mg Tablet PO PRN ×2 (04:50→15:23)
[2017-02-06] MEDS: Ketorolac Tromethamine 30 MG/ML VIAL IVP SCH ×2 (05:51→11:35)
[2017-02-06 06:03] LABS: Anion Gap 9 mmol/L (10-20); BUN (Urea Nitrogen) 15 mg/dL (8.4-25.7); Calc. Creatinine Clearance 170 mL/min (70-130); Calcium 8.5 mg/dL (7.8-10.44); Carbon Dioxide 23 mmol/L (22-29); Chloride 103 mmol/L (98-107); Estimated GFR-MDRD Greater than 90
[2017-02-06 06:36] LABS: Hematocrit 36.6 % (42.0-52.0); Mean Platelet Volume 9.8 fL (7.4-10.4); Neutrophil 59 % (42-75); Red Blood Cell (RBC) Count 3.99 mill/uL (4.70-6.10); White Blood Cell (WBC) Count 4.1 thou/uL (4.8-10.8)
[2017-02-06 07:25] VITALS: BP 146/84; TEMP 97.8
[2017-02-06] MEDS: Famotidine 20 MG TAB PO SCH (08:07)
[2017-02-06] MEDS: Gabapentin 300 MG CAP PO SCH (08:07)
[2017-02-06] MEDS ORDERED: Enoxaparin Sodium 40 MG/0.4 ML SYRINGE SC SCH (09:00)
--- NOTE | 2017-02-06 10:02 | PRG ---
DATE OF SERVICE: 02/06/2017 SUBJECTIVE: Mr. Willem Vega is doing well today. His right below-knee amputation stump looks g ood. There are no wound problems. There were no signs of infection. Antibiotic ointment, Telfa and a stump career technical education instructor was applied. Dressing was removed today and the wound looks very good. I have yadira terated to him that he needs to keep a pillow or blanket beneath his amputation stump and below his k nee to keep his knee extended and prevent a contracture. When I walked in the room today, the blanke t and pillow were beneath his thigh. From surgical standpoint, the patient is transferring and ambul ating with a walker. He can be transferred back to the detention. At the detention, he will need a shower morgan ir or he can wash his right below the knee amputation stump open wound with soap and water and then p lace antibiotic ointment, Telfa and a stump career technical education instructor. He should see me in the office in 2 to 2-1/2 w eeks for staple suture removal. He will need a walker, wheelchair, and a shower chair in the detention. I have told him that he will not get his prosthesis until at least 6-8 weeks. He has another hearing s scheduled soon, he most likely stay at the [facility] detention, although eventually be transferred t o [facility].
[2017-02-06] MEDS ORDERED: Acetaminophen/Codeine 30-300mg Tablet PO PRN (11:13)
--- NOTE | 2017-02-06 11:59 | DIS ---
PRIMARY CARE PHYSICIAN: None. DATE OF DISCHARGE: 02/06/2017 DISCHARGE DIAGNOSES: 1. Chronic osteomyelitis, right ankle with chronic draining wound. 2. Status post right below-knee amputation. CONDITION OF PATIENT AT THE TIME OF DISCHARGE: Stable. I assessed Mr. Vega on the day of discharge. He denies any chest pain or shortness of breath. Vital signs are stable. S1 and S2 are heard, regular. Surgical site is clean. DISCHARGE MEDICATIONS: Tylenol #3 one tablet every 6 hours as needed, prescription for 12 doses. HOSPITAL COURSE: Mr. Vega is a pleasant 56-year-old gentleman who was admitted to [facility] for chronic osteomyelitis of the right lower extremity. He was seen by Surgical Service. He underwent right below knee amputation on 02/02/2017. He was seen by Therapy Services. He is being discharged back to long term on 02/06/2017. On the day of discharge, he has a white count of 4100, hemoglobin 12.2, platelet count 62,000. Sodiu m 131, potassium 4.2, and creatinine 0.75. DISCHARGE DESTINATION: [facility]. TOTAL AMOUNT OF TIME SPENT COORDINATING THIS DISCHARGE: 32 minutes.
== END 2017-02-06 15:45 | DRG 475 ==
LOC: ERS 03:06 → ERHOLD 05:32 → T4-A 12:40
PROVIDERS: ADMIT Internal Medicine; ATTEND Internal Medicine
PROC: 0Y6H0Z1 Detachment at Right Lower Leg, High, Open Approach (ICD-10-PCS; principal; 2017-02-02)
PROC: 3E0T3BZ Introduction of Anesthetic Agent into Peripheral Nerves and Plexi, Percutaneous Approach (ICD-10-PCS; 2017-02-02)
PROC: 30233R1 Transfusion of Nonautologous Platelets into Peripheral Vein, Percutaneous Approach (ICD-10-PCS; 2017-02-02)
DX: M86.671 Other chronic osteomyelitis, right ankle and foot (principal); L03.115 Cellulitis of right lower limb; D69.6 Thrombocytopenia, unspecified; K74.60 Unspecified cirrhosis of liver; L97.319 Non-pressure chronic ulcer of right ankle with unspecified severity; I10 Essential (primary) hypertension; K21.9 Gastro-esophageal reflux disease without esophagitis; Z23 Encounter for immunization; Z87.891 Personal history of nicotine dependence; R73.03 Prediabetes; I70.208 Unspecified atherosclerosis of native arteries of extremities, other extremity; B18.2 Chronic viral hepatitis C; T81.4XXS Infection following a procedure, sequela; Y83.8 Other surgical procedures as the cause of abnormal reaction of the patient, or of later complication, without mention of misadventure at the time of the procedure
CPT/HCPCS: 36415; 36430; 80048; 80053; 80202; 81003; 82553; 83605; 83690; 83735; 84484; 85025; 85610; 86850; 86900; 86901; 87040; 87086; 88307; 90471; 90682; 93005; 93010; 96361; 96365; 96375; A4216; G0008; G8978-GP-CL; G8979-GP-CJ; G8987-GO-CJ; G8988-GO-CI; J0692; J1650; J1885; J2001; J2250; J2405; J2543; J2704; J2795; J3010; J3370; J7050; L8440; P9035; Q2036

== ENCOUNTER 2024-11-24 16:43 | Inpatient (IN) | payer MEDICARE, SELFPAY ==
[~2024-11-24 16:43] MED LIST: Iopamidol-370 76% 500 ML MDV (1 ML CHARGE) ONE
[2024-11-24 19:00] LABS: ALT (SGPT) 49 U/L (Less than 45); AST (SGOT) 81 U/L (11-34); Albumin 2.9 g/dL (3.1-4.5); Alkaline Phosphatase 122 U/L (40-110); Anion Gap 13 mmol/L (10-20); BUN (Urea Nitrogen) 16 mg/dL (8.4-25.7); Bilirubin, Total 1.8 mg/dL (0.3-1.2); Calc. Creatinine Clearance 0 mL/min (70-130); Calcium 8.0 mg/dL (7.8-10.44); Carbon Dioxide 16 mmol/L (23-31); Chloride 110 mmol/L (98-107); Globulin 3.9 g/dL (2.4-3.5); Glucose 233 mg/dL (80-115); Potassium 3.7 mmol/L (3.5-5.1); Sodium 135 mmol/L (136-145)
[2024-11-24 20:14] LABS: #Basophils Less than 0.03 10x3/uL (0.0-0.2); #Eosinophils 0.23 10x3/uL (0.0-0.7); #Monocytes 0.40 10x3/uL (0.11-0.59); #Neutrophils 2.68 10x3/uL (1.40-6.50); %Basophils 0.5 % (0.0-1.0); %Eosinophils 5.9 % (0.0-10.0); %Lymphocytes 14.0 % (21.0-51.0); %Monocytes 10.2 % (0.0-10.0); %Neutrophils 68.1 % (42.0-75.0); Hematocrit 35.3 % (42.0-52.0); Hemoglobin 12.3 g/dL (14.0-18.0); Mean Corpuscular Hemoglobin 31.5 pg (27.0-31.0); Mean Corpuscular Volume 90.3 fL (78.0-98.0); Platelet Count 26 10x3/uL (130-400); Red Blood Cell (RBC) Count 3.91 mill/uL (4.70-6.10); White Blood Cell (WBC) Count 3.93 10x3/uL (4.8-10.8)
[2024-11-24 21:23] LABS: Lipase 23 U/L (8-78)
[2024-11-24 21:25] LABS: Acetaminophen Less than 10 mcg/mL (Less than 10); Salicylate Less than 8.0 mg/dL (Less than 8.0)
[2024-11-24] MEDS ORDERED: cefTRIAXone (ROCEPHIN) 2 GM VIAL ONE (21:59)
[2024-11-24] MEDS ORDERED: Acetaminophen 500 MG TAB PO PRN (22:49)
[2024-11-24] MEDS ORDERED: Ondansetron PF 4 MG/2 ML Vial IVP PRN (22:49)
[2024-11-24] MEDS ORDERED: Dextrose 50% Abboject 50 ML SYRINGE SLOW IVP PRN (23:14)
[2024-11-24] MEDS ORDERED: Glucagon 1 MG/ML KIT IM PRN (23:14)
[2024-11-25 00:34] LABS: Actual Bicarbonate (HCO3v) 20.2 mEq/L (22-28); Base Excess -2.8 mEq/L (-2.0 to +3.0); Calcium, Ionized (venous) 0.96 mmol/L (1.16-1.32); Chloride (VBG) 109 mmol/L (98-106); Hematocrit-VBG 38 % (42.0-52.0); Hemoglobin (Hb) 12.8 g/dL (12.6-17.4); Potassium (VBG) 4.52 mmol/L (3.70-5.30); Sodium 136 mmol/L (133-146)
[2024-11-25 01:36] VITALS: BMI 51.0
[2024-11-25] MEDS: Lactulose 10 GM/15 ML Oral Solution PR SCH (03:32)
[2024-11-25] MEDS: Lactulose 20 GM (30 mL) UDCUP PO SCH ×2 (06:27→20:21)
[2024-11-25 07:05] LABS: Bacteria/HPF None Seen HPF (None Seen); CAUTI Indications for Culture Alt mental st,lethar; Glucose, Urine (Dipstick) 50 mg/dL (Negative); Leukocyte Negative Leu/uL (Negative); Protein, Urine (Dipstick) 10 mg/dL (Neg-Trace); RBC/HPF 0-3 HPF (0-3); WBC/HPF None Seen HPF (0-3)
[2024-11-25 07:10] LABS: Cocaine Metabolite Screen Negative (Negative); Specific Gravity, Urine Greater than 1.050 (1.002-1.036); THC/Cannabinoid Screen PRELIM POSITIVE (Negative); Tricyclic Screen Negative (Negative); Urine Culture Reflex No No
[2024-11-25 08:36] LABS: INR-International Normal Ratio 1.4; PTT 37.7 sec (22.9-36.1); Prothrombin Time 17.0 sec (12.0-14.7)
[2024-11-25] MEDS: Pantoprazole 40 MG VIAL IVP SCH (08:41)
[2024-11-25 08:43] LABS: ALT (SGPT) 47 U/L (Less than 45); AST (SGOT) 70 U/L (11-34); Albumin 2.6 g/dL (3.1-4.5); Alkaline Phosphatase 111 U/L (40-110); Anion Gap 9 mmol/L (10-20); BUN (Urea Nitrogen) 12 mg/dL (8.4-25.7); Bilirubin, Total 1.3 mg/dL (0.3-1.2); Calc. Creatinine Clearance 178 mL/min (70-130); Calcium 7.8 mg/dL (7.8-10.44); Carbon Dioxide 20 mmol/L (23-31); Chloride 112 mmol/L (98-107); Globulin 3.7 g/dL (2.4-3.5); Glucose 131 mg/dL (80-115); Magnesium 1.7 mg/dL (1.6-2.6); Potassium 3.6 mmol/L (3.5-5.1); Sodium 137 mmol/L (136-145)
[2024-11-25 08:49] LABS: #Basophils Less than 0.03 10x3/uL (0.0-0.2); #Eosinophils 0.18 10x3/uL (0.0-0.7); #Monocytes 0.31 10x3/uL (0.11-0.59); #Neutrophils 2.03 10x3/uL (1.40-6.50); %Basophils 0.7 % (0.0-1.0); %Eosinophils 6.2 % (0.0-10.0); %Lymphocytes 12.0 % (21.0-51.0); %Monocytes 10.7 % (0.0-10.0); %Neutrophils 69.7 % (42.0-75.0); Hematocrit 34.2 % (42.0-52.0); Hemoglobin 11.7 g/dL (14.0-18.0); Mean Corpuscular Hemoglobin 31.5 pg (27.0-31.0); Mean Corpuscular Volume 92.2 fL (78.0-98.0); Platelet Count 39 10x3/uL (130-400); Red Blood Cell (RBC) Count 3.71 mill/uL (4.70-6.10); White Blood Cell (WBC) Count 2.91 10x3/uL (4.8-10.8)
[2024-11-25 09:14] LABS: Burr Cells MODERATE= 6-15 cells HPF (0-1); Platelet Adequacy Comment Significant Decrease; Poikilocytosis SLIGHT = 6-15 cells HPF (0-5); Polychromasia SLIGHT = 2-3 cells HPF (0-2)
[2024-11-25] MEDS ORDERED: Lactulose 20 GM (30 mL) UDCUP PO SCH (21:00)
[2024-11-25 23:44] VITALS: BMI 51.0
[2024-11-26 04:16] LABS: #Basophils 0.03 10x3/uL (0.0-0.2); #Eosinophils 0.19 10x3/uL (0.0-0.7); #Monocytes 0.59 10x3/uL (0.11-0.59); #Neutrophils 2.36 10x3/uL (1.40-6.50); %Basophils 0.8 % (0.0-1.0); %Eosinophils 5.1 % (0.0-10.0); %Lymphocytes 13.3 % (21.0-51.0); %Monocytes 16.0 % (0.0-10.0); %Neutrophils 64.0 % (42.0-75.0); Hematocrit 34.1 % (42.0-52.0); Hemoglobin 11.4 g/dL (14.0-18.0); Mean Corpuscular Hemoglobin 31.0 pg (27.0-31.0); Mean Corpuscular Volume 92.7 fL (78.0-98.0); Platelet Count 43 10x3/uL (130-400); Red Blood Cell (RBC) Count 3.68 mill/uL (4.70-6.10); White Blood Cell (WBC) Count 3.69 10x3/uL (4.8-10.8)
[2024-11-26 04:23] LABS: ALT (SGPT) 46 U/L (Less than 45); AST (SGOT) 64 U/L (11-34); Albumin 2.5 g/dL (3.1-4.5); Alkaline Phosphatase 120 U/L (40-110); Anion Gap 10 mmol/L (10-20); BUN (Urea Nitrogen) 13 mg/dL (8.4-25.7); Bilirubin, Total 1.1 mg/dL (0.3-1.2); Calc. Creatinine Clearance 141 mL/min (70-130); Calcium 7.5 mg/dL (7.8-10.44); Carbon Dioxide 20 mmol/L (23-31); Chloride 110 mmol/L (98-107); Globulin 3.4 g/dL (2.4-3.5); Glucose 146 mg/dL (80-115); Magnesium 1.6 mg/dL (1.6-2.6); Potassium 3.6 mmol/L (3.5-5.1); Sodium 136 mmol/L (136-145)
[2024-11-26 15:48] VITALS: BP 114/74; TEMP 99.7
[2024-11-26] MEDS: PNEUMOC 20-VAL CONJ-DIP CRM/PF 0.5 ML SYRINGE IM ONE (16:20)
== END 2024-11-26 18:08 | disposition home or self-care (01) | DRG 442 ==
LOC: ERS 16:43 → 2SE 22:49 → OBSVTOIN 11-25 16:08
PROVIDERS: ADMIT Internal Medicine; ATTEND Internal Medicine
DX: K76.82 Hepatic encephalopathy (principal); D61.818 Other pancytopenia; E87.20 Acidosis, unspecified; K74.60 Unspecified cirrhosis of liver; I10 Essential (primary) hypertension; E11.9 Type 2 diabetes mellitus without complications; E87.8 Other disorders of electrolyte and fluid balance, not elsewhere classified; B19.20 Unspecified viral hepatitis C without hepatic coma; Z88.2 Allergy status to sulfonamides; Z78.1 Physical restraint status; Z87.891 Personal history of nicotine dependence; Z79.899 Other long term (current) drug therapy; W19.XXXA Unspecified fall, initial encounter; D64.9 Anemia, unspecified; Z89.511 Acquired absence of right leg below knee; Z90.49 Acquired absence of other specified parts of digestive tract; Z23 Encounter for immunization
CPT/HCPCS: 36415; 36416; 70450; 70496; 70498; 71260; 74177; 80053; 80306; 80307; 81001; 82140; 82805; 83605; 83690; 83735; 84443; 85025; 85610; 85730; 87040; 90471; 90677; 93005; 94760; 96365; 96375; G0009; G0378; J0696; J1630; J1815; J2470; Q9967

== ENCOUNTER 2025-01-26 10:15 | Inpatient (IN) | payer MEDICARE ==
[2025-01-26 10:57] LABS: Hematocrit 33.4 % (42.0-52.0); Hemoglobin 10.8 g/dL (14.0-18.0); Mean Corpuscular Hemoglobin 29.2 pg (27.0-31.0); Mean Corpuscular Volume 90.3 fL (78.0-98.0); Platelet Count 64 10x3/uL (130-400); Red Blood Cell (RBC) Count 3.70 mill/uL (4.70-6.10); White Blood Cell (WBC) Count 4.58 10x3/uL (4.8-10.8)
[2025-01-26 11:08] LABS: ALT (SGPT) 30 U/L (Less than 45); AST (SGOT) 58 U/L (11-34); Albumin 2.4 g/dL (3.1-4.5); Alkaline Phosphatase 165 U/L (40-110); Anion Gap 11 mmol/L (10-20); BUN (Urea Nitrogen) 16 mg/dL (8.4-25.7); Bilirubin, Total 1.5 mg/dL (0.3-1.2); Calc. Creatinine Clearance 0 mL/min (70-130); Calcium 7.7 mg/dL (7.8-10.44); Carbon Dioxide 20 mmol/L (23-31); Chloride 108 mmol/L (98-107); Globulin 4.7 g/dL (2.4-3.5); Glucose 244 mg/dL (80-115); Potassium 3.6 mmol/L (3.5-5.1); Sodium 135 mmol/L (136-145)
[2025-01-26 11:09] LABS: Acetaminophen Less than 10 mcg/mL (Less than 10); Salicylate Less than 8.0 mg/dL (Less than 8.0)
[2025-01-26 11:14] LABS: INR-International Normal Ratio 1.3; PTT 33.6 sec (22.9-36.1); Prothrombin Time 16.3 sec (12.0-14.7)
[2025-01-26 11:38] LABS: Anisocytosis MODERATE=16-30 cells HPF (0-5); Macrocytosis SLIGHT = 6-15 cells HPF (0-5); Ovalocytes SLIGHT = 2-5 cells HPF (0-1); Platelet Adequacy Comment Platelets Decreased
[2025-01-26] MEDS ORDERED: Iopamidol 370 76% 100 ML VIAL ONE (11:43)
[2025-01-26 11:53] LABS: Bacteria/HPF None Seen HPF (None Seen); CAUTI Indications for Culture Pelvic or flank pain; Glucose, Urine (Dipstick) Normal (Negative); Leukocyte 25 Leu/uL (Negative); Protein, Urine (Dipstick) Negative (Neg-Trace); RBC/HPF 0-3 HPF (0-3); Specific Gravity, Urine 1.008 (1.002-1.036)
[2025-01-26 11:55] LABS: Urine Culture Reflex No No
[2025-01-26] MEDS ORDERED: Furosemide 40 MG (4 mL) VIAL ONE (13:54)
[2025-01-26] MEDS ORDERED: Melatonin 3 MG TAB PO PRN (14:27)
[2025-01-26 16:05] VITALS: BMI 36.6
[2025-01-26] MEDS: Furosemide 40 MG (4 mL) VIAL SLOW IVP SCH (16:08)
[2025-01-26] MEDS: Spironolactone 25 MG TAB PO SCH (16:09)
[2025-01-26] MEDS: Carvedilol 3.125 MG TAB PO SCH (16:09)
[2025-01-27 05:37] LABS: #Basophils 0.04 10x3/uL (0.0-0.2); #Eosinophils 0.23 10x3/uL (0.0-0.7); #Monocytes 0.56 10x3/uL (0.11-0.59); #Neutrophils 2.68 10x3/uL (1.40-6.50); %Basophils 1.0 % (0.0-1.0); %Eosinophils 5.5 % (0.0-10.0); %Lymphocytes 14.4 % (21.0-51.0); %Monocytes 13.4 % (0.0-10.0); %Neutrophils 64.3 % (42.0-75.0); Hematocrit 32.3 % (42.0-52.0); Hemoglobin 10.7 g/dL (14.0-18.0); Mean Corpuscular Hemoglobin 29.6 pg (27.0-31.0); Mean Corpuscular Volume 89.5 fL (78.0-98.0); Platelet Count 63 10x3/uL (130-400); Red Blood Cell (RBC) Count 3.61 mill/uL (4.70-6.10); White Blood Cell (WBC) Count 4.17 10x3/uL (4.8-10.8)
[2025-01-27 05:44] LABS: ALT (SGPT) 28 U/L (Less than 45); AST (SGOT) 54 U/L (11-34); Albumin 2.2 g/dL (3.1-4.5); Alkaline Phosphatase 142 U/L (40-110); Anion Gap 9 mmol/L (10-20); BUN (Urea Nitrogen) 14 mg/dL (8.4-25.7); Bilirubin, Total 1.7 mg/dL (0.3-1.2); Calc. Creatinine Clearance 130 mL/min (70-130); Calcium 7.8 mg/dL (7.8-10.44); Carbon Dioxide 27 mmol/L (23-31); Chloride 105 mmol/L (98-107); Globulin 4.4 g/dL (2.4-3.5); Glucose 125 mg/dL (80-115); Potassium 3.6 mmol/L (3.5-5.1); Sodium 137 mmol/L (136-145)
[2025-01-27] MEDS ORDERED: Sodium Bicarbonate 2.5 MEQ/5 ML SDV ONE (10:17)
[2025-01-27] MEDS ORDERED: Lidocaine 1% PF 5 ML VIAL ONE (10:17)
[2025-01-27] MEDS: Albumin 25% 25 GM (100 mL) BOT IVPB SCH (17:16)
[2025-01-28 04:59] LABS: #Basophils Less than 0.03 10x3/uL (0.0-0.2); #Eosinophils 0.18 10x3/uL (0.0-0.7); #Monocytes 0.34 10x3/uL (0.11-0.59); #Neutrophils 2.19 10x3/uL (1.40-6.50); %Basophils 0.3 % (0.0-1.0); %Eosinophils 5.6 % (0.0-10.0); %Lymphocytes 14.9 % (21.0-51.0); %Monocytes 10.5 % (0.0-10.0); %Neutrophils 67.8 % (42.0-75.0); Hematocrit 31.7 % (42.0-52.0); Hemoglobin 10.6 g/dL (14.0-18.0); Mean Corpuscular Hemoglobin 29.4 pg (27.0-31.0); Mean Corpuscular Volume 88.1 fL (78.0-98.0); Platelet Count 59 10x3/uL (130-400); Red Blood Cell (RBC) Count 3.60 mill/uL (4.70-6.10); White Blood Cell (WBC) Count 3.23 10x3/uL (4.8-10.8)
[2025-01-28 05:06] LABS: Anion Gap 7 mmol/L (10-20); BUN (Urea Nitrogen) 13 mg/dL (8.4-25.7); Calc. Creatinine Clearance 135 mL/min (70-130); Calcium 7.8 mg/dL (7.8-10.44); Carbon Dioxide 30 mmol/L (23-31); Chloride 104 mmol/L (98-107); Glucose 132 mg/dL (80-115); Potassium 3.3 mmol/L (3.5-5.1); Sodium 138 mmol/L (136-145)
[2025-01-28] MEDS: Lactulose 20 GM (30 mL) UDCUP PO SCH (20:00)
[2025-01-28] MEDS: Spironolactone 25 MG TAB PO SCH (20:00)
[2025-01-29 04:40] LABS: #Basophils Less than 0.03 10x3/uL (0.0-0.2); #Eosinophils 0.14 10x3/uL (0.0-0.7); #Monocytes 0.37 10x3/uL (0.11-0.59); #Neutrophils 2.93 10x3/uL (1.40-6.50); %Basophils 0.5 % (0.0-1.0); %Eosinophils 3.6 % (0.0-10.0); %Lymphocytes 11.4 % (21.0-51.0); %Monocytes 9.4 % (0.0-10.0); %Neutrophils 74.3 % (42.0-75.0); Hematocrit 32.1 % (42.0-52.0); Hemoglobin 10.4 g/dL (14.0-18.0); Mean Corpuscular Hemoglobin 29.1 pg (27.0-31.0); Mean Corpuscular Volume 89.9 fL (78.0-98.0); Platelet Count 60 10x3/uL (130-400); Red Blood Cell (RBC) Count 3.57 mill/uL (4.70-6.10); White Blood Cell (WBC) Count 3.94 10x3/uL (4.8-10.8)
[2025-01-29 04:50] LABS: ALT (SGPT) 23 U/L (Less than 45); AST (SGOT) 41 U/L (11-34); Albumin 2.7 g/dL (3.1-4.5); Alkaline Phosphatase 148 U/L (40-110); Anion Gap 8 mmol/L (10-20); BUN (Urea Nitrogen) 14 mg/dL (8.4-25.7); Bilirubin, Total 1.0 mg/dL (0.3-1.2); Calc. Creatinine Clearance 123 mL/min (70-130); Calcium 8.0 mg/dL (7.8-10.44); Carbon Dioxide 26 mmol/L (23-31); Chloride 105 mmol/L (98-107); Globulin 3.7 g/dL (2.4-3.5); Glucose 284 mg/dL (80-115); Magnesium 1.9 mg/dL (1.6-2.6); Potassium 3.6 mmol/L (3.5-5.1); Sodium 135 mmol/L (136-145)
[2025-01-29] MEDS: Acetaminophen 325 MG TAB PO PRN (06:46)
[2025-01-29] MEDS: Pantoprazole 40 MG DR.TAB PO SCH (09:47)
[2025-01-29] MEDS: FLU (Fluad Triv) 25-26 (65UP)PF 45 MCG/0.5 ML Syringe IM ONE (09:49)
[2025-01-29] MEDS: PNEUMOC 20-VAL CONJ-DIP CRM/PF 0.5 ML SYRINGE IM ONE (09:50)
[2025-01-31 14:13] VITALS: BP 145/89; TEMP 98.2
== END 2025-01-31 15:05 | disposition home or self-care (01) | DRG 433 ==
LOC: ERS 10:15 → 2NO 13:39 → OBSVTOIN 01-27 15:17 → MSONC 01-28 16:37 → UNDODISIN 01-30 18:25
PROVIDERS: ADMIT Internal Medicine; ATTEND Family Medicine
PROC: 0W9G30Z Drainage of Peritoneal Cavity with Drainage Device, Percutaneous Approach (ICD-10-PCS; principal; 2025-01-27)
PROC: 30233J1 Transfusion of Nonautologous Serum Albumin into Peripheral Vein, Percutaneous Approach (ICD-10-PCS; 2025-01-27)
DX: K70.31 Alcoholic cirrhosis of liver with ascites (principal); D61.818 Other pancytopenia; E87.1 Hypo-osmolality and hyponatremia; E11.9 Type 2 diabetes mellitus without complications; I10 Essential (primary) hypertension; D64.9 Anemia, unspecified; F17.210 Nicotine dependence, cigarettes, uncomplicated; F10.90 Alcohol use, unspecified, uncomplicated; Z90.49 Acquired absence of other specified parts of digestive tract; Z98.890 Other specified postprocedural states; Z83.3 Family history of diabetes mellitus; B19.20 Unspecified viral hepatitis C without hepatic coma
CPT/HCPCS: 36415; 49083; 71045; 74177; 80048; 80053; 80307; 81001; 83735; 83880; 84484; 85025; 85610; 85730; 93005; J1940; P9047; Q9967

== ENCOUNTER 2025-02-14 17:57 | Emergency (ER) | payer MEDICARE ==
[2025-02-14 18:36] LABS: #Basophils 0.03 10x3/uL (0.0-0.2); #Eosinophils 0.29 10x3/uL (0.0-0.7); #Monocytes 0.46 10x3/uL (0.11-0.59); #Neutrophils 2.65 10x3/uL (1.40-6.50); %Basophils 0.8 % (0.0-1.0); %Eosinophils 7.4 % (0.0-10.0); %Lymphocytes 11.8 % (21.0-51.0); %Monocytes 11.8 % (0.0-10.0); %Neutrophils 67.7 % (42.0-75.0); Hematocrit 33.7 % (42.0-52.0); Hemoglobin 11.2 g/dL (14.0-18.0); Mean Corpuscular Hemoglobin 29.0 pg (27.0-31.0); Mean Corpuscular Volume 87.3 fL (78.0-98.0); Platelet Count 46 10x3/uL (130-400); Red Blood Cell (RBC) Count 3.86 mill/uL (4.70-6.10); White Blood Cell (WBC) Count 3.91 10x3/uL (4.8-10.8)
[2025-02-14 18:37] LABS: Bacteria/HPF None Seen HPF (None Seen); CAUTI Indications for Culture Pelvic or flank pain; Glucose, Urine (Dipstick) Normal (Negative); Leukocyte 250 Leu/uL (Negative); Protein, Urine (Dipstick) Negative (Neg-Trace); RBC/HPF 0-3 HPF (0-3); Specific Gravity, Urine 1.007 (1.002-1.036)
[2025-02-14 18:39] LABS: Urine Culture Reflex No No
[2025-02-14 18:48] LABS: ALT (SGPT) 34 U/L (Less than 45); AST (SGOT) 59 U/L (11-34); Albumin 2.8 g/dL (3.1-4.5); Alkaline Phosphatase 193 U/L (40-110); Anion Gap 11 mmol/L (10-20); BUN (Urea Nitrogen) 16 mg/dL (8.4-25.7); Bilirubin, Total 1.4 mg/dL (0.3-1.2); Calc. Creatinine Clearance 0 mL/min (70-130); Calcium 7.7 mg/dL (7.8-10.44); Carbon Dioxide 22 mmol/L (23-31); Chloride 105 mmol/L (98-107); Globulin 4.3 g/dL (2.4-3.5); Glucose 198 mg/dL (80-115); Lipase 32 U/L (8-78); Potassium 3.5 mmol/L (3.5-5.1); Sodium 134 mmol/L (136-145)
[2025-02-14 18:49] LABS: INR-International Normal Ratio 1.3; Prothrombin Time 16.3 sec (12.0-14.7)
[2025-02-14 18:50] LABS: PTT 34.1 sec (22.9-36.1)
[2025-02-14 22:48] LABS: RBC Count-Automated (BF) 323 /cu.mm; WBC/Nucleated-Auto (BF) 45 /cu.mm
[2025-02-14 23:20] LABS: BF Segmented Neutrophils 17 %; Cell Count Non Hematic 44 %
== END 2025-02-15 01:07 | disposition home or self-care (01) ==
LOC: ERS 17:57
DX: R10.11 Right upper quadrant pain (principal); R14.0 Abdominal distension (gaseous); R18.8 Other ascites; K74.60 Unspecified cirrhosis of liver; E11.9 Type 2 diabetes mellitus without complications; I10 Essential (primary) hypertension; F17.210 Nicotine dependence, cigarettes, uncomplicated
CPT/HCPCS: 49083; 71045; 71275; 74177; 80053; 81001; 83605; 83690; 83880; 84484; 85025; 85610; 85730; 87070; 87205; 89051; 93005; 99285; Q9967; 36415; 85060

== ENCOUNTER 2025-02-20 14:15 | Emergency (ER) | payer MEDICARE ==
[2025-02-20] MEDS ORDERED: Furosemide 40 MG (4 mL) VIAL ONE (15:42)
[2025-02-20 16:04] LABS: #Basophils 0.03 10x3/uL (0.0-0.2); #Eosinophils 0.39 10x3/uL (0.0-0.7); #Monocytes 0.54 10x3/uL (0.11-0.59); #Neutrophils 2.80 10x3/uL (1.40-6.50); %Basophils 0.7 % (0.0-1.0); %Eosinophils 9.1 % (0.0-10.0); %Lymphocytes 11.9 % (21.0-51.0); %Monocytes 12.6 % (0.0-10.0); %Neutrophils 65.2 % (42.0-75.0); Hematocrit 34.5 % (42.0-52.0); Hemoglobin 10.9 g/dL (14.0-18.0); Mean Corpuscular Hemoglobin 28.8 pg (27.0-31.0); Mean Corpuscular Volume 91.0 fL (78.0-98.0); Platelet Count 53 10x3/uL (130-400); Red Blood Cell (RBC) Count 3.79 mill/uL (4.70-6.10); White Blood Cell (WBC) Count 4.29 10x3/uL (4.8-10.8)
[2025-02-20 16:14] LABS: ALT (SGPT) 35 U/L (Less than 45); AST (SGOT) 71 U/L (11-34); Albumin 2.8 g/dL (3.1-4.5); Alkaline Phosphatase 173 U/L (40-110); Anion Gap 12 mmol/L (10-20); BUN (Urea Nitrogen) 15 mg/dL (8.4-25.7); Bilirubin, Total 2.1 mg/dL (0.3-1.2); Calc. Creatinine Clearance 0 mL/min (70-130); Calcium 8.3 mg/dL (7.8-10.44); Carbon Dioxide 22 mmol/L (23-31); Chloride 106 mmol/L (98-107); Globulin 4.7 g/dL (2.4-3.5); Glucose 139 mg/dL (80-115); Potassium 3.7 mmol/L (3.5-5.1); Sodium 136 mmol/L (136-145)
== END 2025-02-20 22:10 | disposition home or self-care (01) ==
LOC: ERS 14:15
DX: R10.9 Unspecified abdominal pain (principal); K74.60 Unspecified cirrhosis of liver; I10 Essential (primary) hypertension; Z87.891 Personal history of nicotine dependence; Z79.899 Other long term (current) drug therapy
CPT/HCPCS: 36415; 71045; 74177; 80053; 83880; 84484; 85025; 93005; J1940; J2270; Q9967; 96374; 96375

== ENCOUNTER 2025-02-25 13:41 | Emergency (ER) | payer MEDICARE ==
[2025-02-25 17:14] LABS: CAUTI Indications for Culture Dysuria,urgency,freq; Glucose, Urine (Dipstick) Normal (Negative); Leukocyte 250 Leu/uL (Negative); Protein, Urine (Dipstick) 20 mg/dL (Neg-Trace); RBC/HPF 0-3 HPF (0-3); Specific Gravity, Urine 1.028 (1.002-1.036); WBC/HPF 0-3 HPF (0-3)
[2025-02-25 17:16] LABS: Bacteria/HPF 1+ HPF (None Seen); Urine Culture Reflex No No
== END 2025-02-25 17:10 | disposition left against medical advice (07) ==
LOC: ERS 13:41
DX: Z53.21 Procedure and treatment not carried out due to patient leaving prior to being seen by health care provider (principal)
CPT/HCPCS: 71045; 81001; 87077; 87086; 93005